=== PATIENT | female | born 1990 | race Two or more races ===

== ENCOUNTER → 2017-05-21 11:57 | Outpatient (CLI) | payer MEDICAID ==
[2015-06-21 06:15] VITALS: BMI 29.5
[~2017-05-21 11:57] MED LIST: FERROUS SULFAT325 MG PO; HYDROCODON-ACE1 EAC7 PO; IBUPROFEN600 MG PO; PERCOCET 5-3251 TAB PO; PRENATAL COMPLE1 TAB PO
[2017-05-21 12:56] LABS: HEMOGLOBIN 7.7 g/dL (12-16); MCH 23.8 pg (26.0-34.0); MCHC 30.8 g/dL (31.0-37.0); MCV 77.2 fL (80.0-100.0); PLATELET COUNT 103 10x3/uL (130-400); RBC 3.24 10x6/uL (4.00-5.40); RDW 16.1 % (11.5-14.5); WBC 6.1 10x3/uL (4.8-10.8)
== END | disposition home or self-care (01) ==
LOC: D.LDO 11:57 → D.OPS 12:00
PROVIDERS: Obstetrics & Gynecology
DX: O99.013 Anemia complicating pregnancy, third trimester (principal); Z3A.00 Weeks of gestation of pregnancy not specified

== ENCOUNTER 2017-05-22 09:00 | Inpatient (IN) | payer MEDICAID ==
[~2017-05-22] VITALS: Ht 157.5 cm; Wt 76.2 kg
[~2017-05-22 09:00] MED LIST changes: -HYDROCODON-ACE1 EAC7 PO
[2017-05-22 09:35] LABS: MCH 24.9 pg (26.0-34.0); MCV 77.8 fL (80.0-100.0); PLATELET COUNT 101 10x3/uL (130-400); RDW 15.6 % (11.5-14.5)
[2017-05-22 09:36] LABS: HEMATOCRIT 31.9 % (36.0-48.0); HEMOGLOBIN 10.2 g/dL (12-16)
[2017-05-22 10:07] LABS: APPEARANCE HAZY (CLEAR); BILIRUBIN NEGATIVE (NEGATIVE); COLOR YELLOW (YELLOW); GLUCOSE NEGATIVE (NEGATIVE); KETONE NEGATIVE (NEGATIVE); NITRITE NEGATIVE (NEGATIVE); PROTEIN NEGATIVE (NEGATIVE); UROBILINOGEN NORMAL (NORMAL)
[2017-05-22 10:14] LABS: BACTERIA MANY /hpf (NONE SEEN); RED CELLS - URINE OCC /hpf (0-5)
[2017-05-22 14:38] VITALS: BP 121/68; Ht 157.5 cm; Wt 76.2 kg
--- NOTE | 2017-05-22 17:00 | NUR ---
PT UP TO BATHROOM AGAIN TO VOID AND TOLERATED WELL. SMALL CHILO NOTED. STATES THAT SHE HAS SOME CRAMPING AND WOULD LIKE IBUPROFEN.
--- NOTE | 2017-05-22 17:11 | NUR ---
IBUPROFEN GIVEN. SITTING UP IN BED TALKING WITH VISITOR AND EATING REG DIET.
--- NOTE | 2017-05-22 18:30 | NUR ---
up into shower. tolerating well. states that cont to have cramping- rates pain a 5 but does not want anything at this time.
[2017-05-22 19:20] VITALS: BP 109/67
--- NOTE | 2017-05-22 19:20 | NUR ---
RN TO PT BS FOR ARIELLE. PT RESTING IN BED IN HIGH FOWLERS POSITION, HOLDING , IN NO ACUTE DISTRESS. PT IS A 26YO G4 NOW P4 WITH OF VIABLE MALE INFANT TODAY @ 1127. INFANT @ 38.2 WKS GESTATION. PT WITH NO LACERATIONS OR EPIS. AAOX3. HR REGULAR. LUNGS CTAB. ABDOMEN SOFT AND NON TENDER. BS ACTIVE TIMES 4. FUNDUS FIRM AND ML @ U/-1. LOCHIA RUBRA SCANT. NAREN PAD AND PANTIES IN PLACE. PERINIUM APPEARS TO BE INTACT WITH MINIMAL SWELLING NOTED. NO EDEMA NOTED TO UPPER OR LOWER EXTREMITIES BILATERALLY. PT DENIES DIFFICULTY VOIDING. STATES SHE HAS NOT PASSED GAS OR HAD A BM SINCE . PT TOLERATING REGULAR DIET. 18G SL IN PLACE TO RIGHT WRIST. FLUSHED WITH 5 CC NS AT THIS TIME WITHOUT DIFFICULTY. NO REDNESS OR EDEMA NOTED TO SITE. PT RATES PAIN @ 0/10. FRESH WATER MUG PROVIDED TO PT. PT DENIES ANY FURTHER NEEDS. BED IN LOW POSITION, SIDE RAILS UP TIMES 2, CALL LIGHT AND PHONE IN REACH. WILL CONT TO MONITOR PT STATUS.
--- NOTE | 2017-05-22 21:20 | NUR ---
RN TO PT BS FOR ROUNDS. PT RESTING IN BED IN SEMI-FOWLERS POSITION, HOLDING . PT IN NO ACUTE DISTRESS. PT DENIES ANY NEEDS AT THIS TIME. BED IN LOW POSITION, SIDE RAILS UP TIMES 2, CALL LIGHT AND PHONE IN REACH. WILL CONT TO MONITOR STATUS.
--- NOTE | 2017-05-22 22:50 | NUR ---
DR. VEGA AT PT BS TO DISCUSS POC.
--- NOTE | 2017-05-22 23:17 | NUR ---
RN TO PT BS FOR ROUNDS. PT RESTING IN BED IN FOWLERS POSITION, IN NO ACUTE DISTRESS. PT REQUESTS ADDITIONAL LINENS FOR SO THAT IS COMING TO STAY THE NIGHT. PROVIDED. PT DENIES ANY FURTHER NEEDS. BED IN LOW POSITION, SIDE RAILS UP TIMES 2, CALL LIGHT AND PHONE IN REACH. WILL CONT TO MONITOR PT STATUS.
--- NOTE | 2017-05-23 00:02 | NUR ---
PT MEDICATED WITH MOTRIN FOR BACK DISCOMFORT. FRESH ICE WATER PROVIDED. S/O ON COUCH AND SUPPORTIVE.
--- NOTE | 2017-05-23 02:04 | NUR ---
ROOM CHECK, PT RESTING WITH EYES CLOSED. RESP EVEN AND UNLABORED.
--- NOTE | 2017-05-23 02:40 | NUR ---
RN TO PT BS FOR ROUNDS. PT RESTING IN BED IN SEMI-FOWLERS POSITION, WITH EYES CLOSED, IN NO ACUTE DISTRESS. RESPIRATIONS EVEN AND UNLABORED. BED IN LOW POSITION, SIDE RAILS UP TIMES 2, CALL LIGHT AND PHONE IN REACH. SO REMAINS AT PT BS FOR SUPPORT AND ASSISTANCE. REMAINS AT PT BS FOR COUPLET CARE. WILL CONT TO MONITOR PT STATUS.
--- NOTE | 2017-05-23 06:12 | NUR ---
RN TO PTS ROOM FOR ROUNDS. PT AMBULATING IN ROOM IN NO ACUTE DISTRESS. PT PREPARING TO BOTTLE FEED INFANT. PT DENIES ANY NEEDS AT THIS TIME. BED IN LOW POSITION, SIDE RAILS UP TIMES 2, CALL LIGHT AND PHONE IN REACH. SO REMAINS AT PT BS FOR SUPPORT AND ASSISTANCE. REMAINS AT PT BS FOR COUPLET CARE. WILL CONT TO MONITOR PT STATUS.
--- NOTE | 2017-05-23 07:10 | NUR ---
DR BIRCH HERE. VISITED WITH PATIENT.
[2017-05-23 07:21] VITALS: BP 116/67
--- NOTE | 2017-05-23 07:28 | NUR ---
SHIFT ASSESSMENT COMPLETED. SITTING UP IN BED WITH IN ARMS. FOB SLEEPING ON COUCH. C/O 4/10 CRAMPING AND BACK PAIN. MOTRIN 600 MG GIVEN PO FOR RELIEF. ENCOURAGE OOB MOVEMENT. DESIRES TO GO HOME TODAY. BOTTLE FEEDING, NON-SMOKER. DECLINES FLU AND TDAP VACCINES AFTER DISCUSSION. FRESH WATER GIVEN. NO ADDITIONAL REQUESTS. SIDE RAILS UP X 2, CALL LIGHT PLACED IN REACH. TO CALL IF ANYTHING IS NEEDED.
[2017-05-23 08:04] LABS: BASOPHILS 0 % (0-2); EOSINOPHILS 0.9 % (0-7); HEMATOCRIT 28.8 % (36.0-48.0); HEMOGLOBIN 9.2 g/dL (12-16); IMMATURE GRANULOCYTES 0.3 % (0-5); LYMPHOCYTES 21.4 % (15-50); MCH 25.1 pg (26.0-34.0); MCHC 31.9 g/dL (31.0-37.0); MCV 78.5 fL (80.0-100.0); MONOCYTES 9.4 % (2-11); PLATELET COUNT 92 10x3/uL (130-400); RBC 3.67 10x6/uL (4.00-5.40); RDW 16.1 % (11.5-14.5); WBC 9.2 10x3/uL (4.8-10.8)
--- NOTE | 2017-05-23 08:32 | NUR ---
SAYS HER CRAMPING IS "BETTER" 08/21. DENIES NEEDING ANYTHING. FOB SLEEPING, UP AD MELBA. IN ARMS.
[2017-05-23 09:26] LABS: PLATELET ESTIMATE DECREASED
[2017-05-23 09:27] LABS: PLATELET MORPHOLOGY GIANT PLTS PRESENT
--- NOTE | 2017-05-23 10:08 | NUR ---
RESTING ON SIDE. INFANT IN CRIB, FOB SLEEPING ON COUCH. NO REQUEST OTHER THAN TO HAVE LIGHTS TURNED ON LOW. SIDE RAILS UP X 2, CALL LIGHT IN REACH. CBC RESULTS CALLED TO DR BIRCH. T.O RECEIVED TO ME HOME WITH AND F/U IN FOUR WEEKS.
[2017-05-23] MEDS ORDERED: IBUPROFEN600 MG PO (10:14)
[2017-05-23] MEDS ORDERED: HYDROCODON-ACE1 EAC7 PO (10:15)
--- NOTE | 2017-05-23 11:54 | NUR ---
SLEEPING IN SEMI-FOWLERS POSITIONS. RESPIRATIONS EVEN. FOB SLEEPING ON COUCH. INFANT IN NURSERY.
--- NOTE | 2017-05-23 13:46 | NUR ---
SITTING UP IN BED WAITING FOR DC HOME. REQUESTED PAIN MEDICATION FOR C/O 4/10 BACK ACHING. DISCUSSED PAIN MANAGEMENT OPTIONS. OPTED FOR MOTRIN. MOTRIN 600 MG GIVEN PO. TOOK SHOWER EARLIER. INFANT SLEEPING IN CRIB. WAITING ON ACTUARIAL INTERNSHIP FOR DC.
--- NOTE | 2017-05-23 14:01 | NUR ---
DC TEACHING COMPLETED TO INCLUDE ROUTINE PP CARE, PP DEPRESSION, S&S INFECTION, BOTTLEFEEDING, MEDICATION ADMINISTRATION, CARSEAT SAFETY, COMMUNITY RESOURCES AND FOLLOW-UP. VERBALIZED UNDERSTANDING. NO ADDITIONAL QUESTIONS ASKED. IN NURSERY FOR MANAGER AGENCY PE. FOB IN ROOM. ALL BELONGS HAVE BEEN PACKED UP BY FAMILY.
--- NOTE | 2017-05-23 15:30 | NUR ---
DC'D TO THE CAR VIA WHEELCHAIR. IN CARSEAT. FOB PRESENT. ALL BELONGINS REMOVED FROM ROOM. PT HAS WRITTEN DC INSTRUCTIONS AND PRESCRIPTION. WILL CALL FOR F/U APPOINTMENT TOMORROW.
[2017-05-25 03:12] LABS: RAPID PLASMA REAGIN Non Reactive (Non Reactive)
--- NOTE | 2017-06-30 13:27 | DS ---
PATIENT:ASHISH HIGH :88 MEDICAL RECORD: [id number] DISCHARGE SUMMARY ADMISSION DATE: 05/22/17 DISCHARGE DATE: 05/23/17 The patient was admitted on 05/22/2017. A 26-year-old G4, P3 at 38 weeks and 2 days who was admitted in labor. The patient was noted to be B positive, group B strep negative, and rubella immune. The patient had a past medical history significant for anemia. The patient had been admitted the day prior for transfusions of 2 units of packed red blood cells. The patient had a history of low-grade cervical dysplasia. The patient reported no known allergies and no significant surgical history. MEDICATIONS: Included iron supplementation and vitamins. FAMILY HISTORY: The patient reported a family history significant for a sibling with neurological disorder, not otherwise specified. SOCIAL HISTORY: Negative times 3 per the patient. PHYSICAL EXAMINATION: VITAL SIGNS: On initial exam, vital signs were stable. The patient was afebrile and normotensive. LUNGS: Clear to auscultation. CARDIOVASCULAR: Regular rate and rhythm. PELVIC: Uterus was appropriately sized and nontender. EXTREMITIES: Lower extremities were free of Homans sign. LABORATORY DATA: Admission hemoglobin after transfusion was found to be 10.2. ASSESSMENT AND PLAN ON ADMISSION: 1. Term intrauterine at 38 weeks in active labor. 2. Anemia, status post transfusion. 3. Thrombocytopenia at 101. 4. Labor as noted. HOSPITAL COURSE: The patient had been transfused 2 units of packed red cells on the day before. Hemoglobin at admission was 10.1, thrombocytopenia at 102, likely due to borderline gestational thrombocytopenia coupled with delusional thrombocytopenia from the transfusion the day before. The patient received an epidural and AROM was performed at 7-8 cm. The patient quickly progressed to the second stage of labor and had a viable with a compound presentation, which was immediately reduced upon delivery. Delivery note is as on the chart. The patient did well overnight on day #0, tolerating p.o. pain meds, general diet, ambulating well, voiding freely with minimal lochia. On the morning of day #1, status post . The patient continued to do well. Vital signs were stable. CBC was found to be stable. Uterus was infraumbilical and nontender with minimal lochia. The patient was discharged home with instructions to follow up in 4 weeks to schedule a tubal ligation. TRANSINT:[id number] Voice Confirmation ID: [id number] DOCUMENT ID: [id number] DISCHARGE SUMMARY REPORT [id number] ASHISH HIGH, ALFRED Hernandez MD at 1327 CC: [id number] DICTATION DATE: 06/26/17727 DRILLING MACHINE RUNNER: 06/26/17 1329 DIS IN 05/23/17 [place] [id number] [place] [id number]
== END 2017-05-23 15:30 | disposition home or self-care (01) | DRG 775 ==
LOC: D.LD 09:00
PROVIDERS: ADMIT Obstetrics & Gynecology
PROC: 10E0XZZ Delivery of Products of Conception, External Approach (ICD-10-PCS; principal; 2017-05-22)
DX: O99.02 Anemia complicating childbirth (principal); O99.12 Other diseases of the blood and blood-forming organs and certain disorders involving the immune mechanism complicating childbirth; Z3A.38 38 weeks gestation of pregnancy; Z37.0 Single live birth; O32.6XX0 Maternal care for compound presentation, not applicable or unspecified

== ENCOUNTER 2017-08-04 05:39 | Outpatient (CLI) | payer MEDICAID ==
[~2017-08-04 05:39] MED LIST changes: +HYDROCODON-ACE1 EAC7 PO
[2017-08-04 10:00] LABS: BASOPHILS 0.2 % (0-2); EOSINOPHILS 2.2 % (0-7); HEMATOCRIT 32.8 % (36.0-48.0); HEMOGLOBIN 10.5 g/dL (12-16); IMMATURE GRANULOCYTES 0.2 % (0-5); LYMPHOCYTES 44.2 % (15-50); MCH 26.6 pg (26.0-34.0); MCV 83.2 fL (80.0-100.0); MEAN PLATELET VOLUME 11.9 fL (7.4-10.4); MONOCYTES 9.2 % (2-11); RBC 3.94 10x6/uL (4.00-5.40); RDW 20.2 % (11.5-14.5); WBC 4.9 10x3/uL (4.8-10.8)
[2017-08-04 10:03] LABS: PLATELET COUNT 170 10x3/uL (130-400)
[2017-08-05 05:21] VITALS: BMI 30.8
== END 2017-08-04 23:59 | disposition home or self-care (01) ==
LOC: D.OPS 05:39 → EDSTATUS 08-05 09:30
PROVIDERS: Obstetrics & Gynecology
DX: Z30.2 Encounter for sterilization (principal); Z01.810 Encounter for preprocedural cardiovascular examination; Z01.811 Encounter for preprocedural respiratory examination; Z01.812 Encounter for preprocedural laboratory examination; Z53.9 Procedure and treatment not carried out, unspecified reason

== ENCOUNTER 2018-01-31 13:04 | Emergency (ER) | payer MEDICAID ==
[~2018-01-31] VITALS: Ht 157.5 cm; Wt 74.1 kg
[2018-01-31 13:06] VITALS: Ht 157.5 cm; Wt 74.1 kg
[2018-01-31 18:55] LABS: BASOPHILS 0.4 % (0-2); EOSINOPHILS 1.7 % (0-7); HEMATOCRIT 32.1 % (36.0-48.0); HEMOGLOBIN 10.6 g/dL (12-16); IMMATURE GRANULOCYTES 0.2 % (0-5); LYMPHOCYTES 50.7 % (15-50); MCH 28.7 pg (26.0-34.0); MEAN PLATELET VOLUME 13.3 fL (7.4-10.4); MONOCYTES 8.3 % (2-11); NEUTROPHILS 38.7 % (40-80); PLATELET COUNT 176 10x3/uL (130-400); RBC 3.69 10x6/uL (4.00-5.40); RDW 14.1 % (11.5-14.5); WBC 4.7 10x3/uL (4.8-10.8)
[2018-01-31 19:12] LABS: HCG SERUM NEGATIVE (NEGATIVE)
[2018-01-31 19:15] LABS: ALBUMIN 3.7 g/dL (3.4-5.0); ALKALINE PHOSPHATASE 58 U/L (46-116); ALT (SGPT) 36 U/L (10-68); BILIRUBIN - TOTAL 0.39 mg/dL (0.2-1.3); CALC OSMOLALITY 280 mosm/kg (275-300); CALCIUM 8.1 mg/dL (8.5-10.1); CHLORIDE - SERUM 108 mmol/L (98-107); CREATININE - SERUM 0.7 mg/dL (0.6-1.3); GLUCOSE 105 mg/dL (74-106); POTASSIUM - SERUM 3.4 mmol/L (3.5-5.1); PROTEIN - SERUM 7.3 g/dL (6.4-8.2); SODIUM 140 mmol/L (136-145); UREA NITROGEN 18 mg/dL (7-18); eGFR NON AFRICAN AMERICAN > 90 mL/min (90-120)
[2018-01-31] MEDS ORDERED: OMEPRAZOLE40 MG PO (20:18)
[2018-01-31 20:45] VITALS: BP 114/71
== END 2018-01-31 20:45 | disposition home or self-care (01) ==
LOC: D.ER 13:04
PROVIDERS: Emergency Medicine
DX: R07.81 Pleurodynia (principal); Z86.711 Personal history of pulmonary embolism